=== PATIENT | female | born 1950 | race Two or more races ===

== ENCOUNTER 2021-11-13 08:30 | Inpatient (IN) | payer OTHER ==
[2021-12-07 11:08] VITALS: BMI 28.3
[2021-12-11] MEDS ORDERED: ONDANSETRON 4 MG/2 ML VIAL IVPUSH PRN (10:26)
[2021-12-11] MEDS ORDERED: ISOSULFAN BLUE 50 MG/5 ML VIAL SQ ONE (10:45)
[2021-12-11] MEDS ORDERED: METHYLENE BLUE 50 MG/10 ML AMPUL ONE (10:45)
[2021-12-11] MEDS ORDERED: SODIUM CHLORIDE 0.9% P/F 10 ML VIAL IJ ONE (10:47)
[2021-12-11] MEDS ORDERED: LIDOCAINE HCL/PF 2% SDV 5ML VIAL ONE (11:27)
[2021-12-11] MEDS ORDERED: HYDROmorphone HCl 2 MG/ML VIAL ONE (12:03)
[2021-12-11] MEDS ORDERED: LACTATED RINGERS SOLUTION 1,000 ML IV SCH (14:30)
[2021-12-11] MEDS ORDERED: ALPRAZolam 0.25 MG TABLET PO ONE (16:19)
[2021-12-11] MEDS ORDERED: ONDANSETRON 4 MG/2 ML VIAL IVPB PRN (16:19)
[2021-12-11] MEDS ORDERED: ACETAMINOPHEN 500 MG TABLET (FP) PO PRN (16:19)
[2021-12-11] MEDS ORDERED: LACTATED RINGERS SOLUTION 1,000 ML/1,000 ML INFUS.BAG IV SCH (16:30)
[2021-12-11] MEDS ORDERED: oxyCODONE HCL 5 MG TABLET PO PRN ×2 (16:45)
[2021-12-11] MEDS ORDERED: ACETAMINOPHEN 325 MG TABLET (FP) PO PRN ×2 (16:45)
[2021-12-11] MEDS ORDERED: DEXTROSE 5%-WATER - 50 ML IVPB ONE (17:57)
[2021-12-11] MEDS ORDERED: ceFAZolin SODIUM 1 GM VIAL ONE (17:57)
[2021-12-11] MEDS: CEFAZOLIN 1 GM in DEXTROSE 5%-WATER - 50 ML IVPB SCH (17:59)
[2021-12-12] MEDS ORDERED: DEXTROSE 5%-WATER - 50 ML IVPB ONE ×2 (01:27→09:28)
[2021-12-12] MEDS ORDERED: ceFAZolin SODIUM 1 GM VIAL ONE ×2 (01:27→09:28)
[2021-12-12] MEDS: CEFAZOLIN 1 GM in DEXTROSE 5%-WATER - 50 ML IVPB SCH ×2 (02:09→09:30)
[2021-12-12 15:07] VITALS: BP 125/72; PULSE 82; TEMP 98.9
== END 2021-12-12 17:04 | disposition home health service (06) | DRG 362 ==
LOC: J2C 12-11 04:16 → J6S 12-11 17:03
PROVIDERS: ADMIT Surgery; ATTEND Surgery
PROC: 0HTU0ZZ Resection of Left Breast, Open Approach (ICD-10-PCS; principal; 2021-12-11 10:00)
PROC: 07B60ZX Excision of Left Axillary Lymphatic, Open Approach, Diagnostic (ICD-10-PCS; 2021-12-11 10:00)
PROC: 0HBT0ZZ Excision of Right Breast, Open Approach (ICD-10-PCS; 2021-12-11 10:00)
DX: D05.12 Intraductal carcinoma in situ of left breast (principal); L90.5 Scar conditions and fibrosis of skin; L91.0 Hypertrophic scar
CPT/HCPCS: 19281; 76098-TC-FY; 82962; 88307-TC; 94760; A9541; Q9968